=== PATIENT | female | born 1965 | race Caucasian/White ===

== ENCOUNTER 2019-07-15 09:42 | Inpatient (IN) | payer OTHER ==
[2019-07-15] MEDS ORDERED: THROMBIN (BOVINE) 5,000 UNIT VIAL TP ONE ×2 (14:05→17:25)
[2019-07-15] MEDS ORDERED: HEPARIN NA (PORCINE) 5,000 UNITS/ML 1ML VIAL ONE (14:05)
[2019-07-15] MEDS ORDERED: PROPOFOL 20 ML ONE ×9 (14:13→18:08)
[2019-07-15] MEDS ORDERED: fentaNYL CITRATE 250 MCG/5 ML VIAL ONE (14:13)
[2019-07-15] MEDS ORDERED: DEXAMETHASONE SOD PHOSPHATE 4 MG/1 ML VIAL ONE ×2 (14:14)
[2019-07-15] MEDS ORDERED: MIDAZOLAM HCL 2 MG/2 ML SINGLE DOSE VIAL ONE (14:14)
[2019-07-15] MEDS ORDERED: SUCCINYLCHOLINE CHLORIDE 200 MG/10 ML SYRINGE ONE (14:14)
[2019-07-15] MEDS ORDERED: ONDANSETRON 4 MG/2 ML VIAL ONE ×2 (14:14→19:01)
[2019-07-15] MEDS ORDERED: ceFAZolin SODIUM 1 GM VIAL IVPB ONE (16:55)
[2019-07-15] MEDS ORDERED: VANCOMYCIN 1,000 MG VIAL (RESTRICTED TO ID ONLY) ONE (16:57)
[2019-07-15] MEDS ORDERED: VANCOMYCIN 1,000 MG VIAL (RESTRICTED TO ID ONLY) IVPB ONE (17:00)
[2019-07-15] MEDS ORDERED: oxyCODONE HCL 5 MG TABLET PO PRN (19:04)
[2019-07-15] MEDS ORDERED: ONDANSETRON 4 MG/2 ML VIAL IVPUSH PRN ×2 (19:04→19:19)
--- NOTE | 2019-07-15 19:09 | OP ---
Operative Note - Note: Operative Date: 07/15/19 Pre-Operative Diagnosis: C4-C5 stenosis, myelopathy, radiculopathy Operation: C4-C5 ACDF Implants: Cage: 8. Plate: 12mm. Screws: 4 x 4x12mm Post-Operative Diagnosis: Same as Pre-op Surgeon: Al Gatica Mail Inserter: Paco Gatica Anesthesiologist/SECURITIES RESEARCH ANALYST: Norma Martinez Anesthesia: General Specimens Removed: C4-C5 disc Estimated Blood Loss (mls): 50 Fluid Volume Replaced (mls): 1,100 (Crystalloid) Operative Report Dictated: Yes
--- NOTE | 2019-07-15 19:11 | PN ---
Progress Note (short form) - Note Progress Note: 53F s/p C4-C5 ACDF POD #0. -Admit to ICU overnight for airway observation. -Airway observation: In case of emergency, remove anterior cervical spine dressing and pull out running suture; ok to cut suture if needed to decompress hematoma. -Maintain head of bed 30-45 degrees. -Pain medication: per anaesthesia team; oral meds (oxycodone preferred), no NEWSPAPER INSERTER ; NO NSAID's. -No c-collar necessary. -DVT PPx: -Mechanical only: JONO's, SCD's. -Post-op Ancef x 3 doses. -f/u AM labs. -Incentive spirometry. -PT/OT/Rehab, OOB. -PWB B/L UE: 5lbs. -WBAT B/L LE. -d/c Mcfadden catheter at midnight tonight; TOV (8 hours max). -Keep dressing clean & dry. -No heavy lifting (>5 lbs), bending or twisting x 6 months post op. -Start with soft diet; advance diet as tolerated. -B/L UE & LE NV checks. -Care per ICU & medical hospitalist teams. -Discharge planning: discharge home tomorrow; f/u [facility] [place] office 7-10 days; call for appointment; . Al Gatica MD (Orthopaedic Surgery).
[2019-07-15] MEDS ORDERED: LACTATED RINGERS SOLUTION 1,000 ML IV SCH (19:15)
--- NOTE | 2019-07-15 19:21 | PN ---
Teaching Attending Note Name of Resident: Nabor Jolly ATTENDING PHYSICIAN STATEMENT I saw and evaluated the patient. I reviewed the resident's note and discussed the case with the resident. I agree with the resident's findings and plan as documented. SUBJECTIVE: 53-year-old woman status post C4-C5 anterior cervical discectomy and fusion. Postop day #0. OBJECTIVE: Last Vital Signs Temp Pulse Resp BP Pulse Ox 98 F 56 L 15 143/90 99 07/15/19 22:15 07/15/19 22:15 07/15/19 22:15 07/15/19 22:15 07/15/19 22:15 GENERAL: Well developed, well nourished. Awake and alert. No acute distress. HEENT: Normocephalic, atraumatic. PERRLA, EOMI. No conjunctival pallor. Sclera are non- icteric. Moist mucous membranes. NECK: Supple. Full ROM. No JVD. Gauze over anterior neck. CARDIOVASCULAR: Regular rate and rhythm. No murmurs, rubs, or gallops. Distal pulses are 2+ and symmetric. PULMONARY: No evidence of respiratory distress. Lungs clear to auscultation bilaterally. No wheezing, rales or rhonchi. ABDOMINAL: Soft. Non-tender. Non-distended. No rebound or guarding. No organomegaly. Normoactive bowel sounds. MUSCULOSKELETAL Normal range of motion at all joints. No bony deformities or tenderness. No CVA tenderness. EXTREMITIES: No cyanosis. No clubbing. No edema. No calf tenderness. SKIN: Warm and dry. Normal capillary refill. No rashes. No jaundice. PSYCHIATRIC: Cooperative. Good eye contact. Appropriate mood and affect. ASSESSMENT AND PLAN: 53-year-old woman status post C4-C5 anterior cervical discectomy and fusion. Postop day #0. Admit to ICU CBC and chemistry Morphine IV as needed for pain control Zofran IV as needed if nausea or vomiting Gentle IV fluid hydration Incentive spirometry BGM's every 6 hours Orthopedic surgery follow-up Wound care Heparin subcutaneously for DVT prophylaxis
[2019-07-15] MEDS ORDERED: ACETAMINOPHEN 1000 MG/100 ML VIAL (NON FORMULARY) IVPB ONE ×2 (20:10→22:02)
[2019-07-15] MEDS ORDERED: ACETAMINOPHEN INJECTION 100 ML IVPB ONE (20:12)
--- NOTE | 2019-07-15 21:11 | HP ---
CHIEF COMPLAINT: LUE numbness and tingling PCP: HISTORY OF PRESENT ILLNESS: This is a 53 year old female with PMH of anxiety, chronic back pain, COPD, fibromyalgia, GERD, HLD, HTM, stroke She underwent elective C4-C5 ACDF for C4-C5 stenosis, myelopathy, radiculopathy and is POD #0. EBL during procedure was 50ml, 1L crystalloids replaced. Pt reports prior hx of LUE numbness with imbalance and prior repeated falls months prior to surgery. No hx of back trauma. No opiate use prior to surgery. Pt reports improvement post surgery. Recent Travel: Denies PAST MEDICAL HISTORY: HPI PAST SURGICAL HISTORY: cholecystectomy, colonoscopy (6 polyps), hemorrhoid surgery, hysterectomy, pilonidal cyst drainage, L shoulder arthroscopy with rotator cuff repair, , upper GI endoscopy, uterine fibroid surgery, vulva surgery Social History: Smokin.5 pack years, quit 1 year ago Alcohol: Drugs: Allergies No Known Allergies Allergy (Verified 07/12/19 13:01) HOME MEDICATIONS: Home Medications Medication Instructions Recorded Alprazolam [Xanax] 1 mg PO PRN 07/12/19 Cholecalciferol (Vitamin D3) 2,000 unit PO HS 07/12/19 [Vitamin D3] Duloxetine HCl [Cymbalta] 60 mg PO HS 07/12/19 Losartan Potassium [Cozaar -] 25 mg PO HS 07/12/19 Magnesium 200 mg PO HS 07/12/19 Pregabalin [Lyrica] 100 mg PO BID 07/12/19 Simvastatin 20 mg PO HS 07/12/19 REVIEW OF SYSTEMS CONSTITUTIONAL: Absent: fever, chills, diaphoresis, generalized weakness, malaise, loss of appetite, weight change HEENT: Absent: rhinorrhea, nasal congestion, throat pain, throat swelling, difficulty swallowing, mouth swelling, ear pain, eye pain, visual changes CARDIOVASCULAR: Absent: chest pain, syncope, palpitations, irregular heart rate, lightheadedness , peripheral edema RESPIRATORY: Absent: cough, shortness of breath, dyspnea with exertion, orthopnea, wheezing, stridor, hemoptysis GASTROINTESTINAL: Absent: abdominal pain, abdominal distension, nausea, vomiting, diarrhea, constipation, melena, hematochezia GENITOURINARY: Absent: dysuria, frequency, urgency, hesitancy, hematuria, flank pain, genital pain MUSCULOSKELETAL: Absent: myalgia, arthralgia, joint swelling, back pain, neck pain SKIN: Absent: rash, itching, pallor HEMATOLOGIC/IMMUNOLOGIC: Absent: easy bleeding, easy bruising, lymphadenopathy, frequent infections ENDOCRINE: Absent: unexplained weight gain, unexplained weight loss, heat intolerance, cold intolerance NEUROLOGIC: Absent: headache, focal weakness or paresthesias, dizziness, unsteady gait, seizure, mental status changes, bladder or bowel incontinence PSYCHIATRIC: Absent: anxiety, depression, suicidal or homicidal ideation, hallucinations. PHYSICAL EXAMINATION Vital Signs - 24 hr 07/15/19 07/15/19 07/15/19 10:35 10:52 19:14 Temperature 97.8 F 97.2 F L Pulse Rate 63 62 Respiratory 20 12 Rate Blood Pressure 112/73 118/94 O2 Sat by Pulse 97 96 Oximetry (%) 07/15/19 07/15/19 07/15/19 19:30 19:45 20:00 Temperature Pulse Rate 62 67 72 Respiratory 16 14 14 Rate Blood Pressure 130/76 150/90 131/85 O2 Sat by Pulse 95 98 98 Oximetry (%) 07/15/19 20:15 Temperature Pulse Rate 65 Respiratory 16 Rate Blood Pressure 156/88 O2 Sat by Pulse 97 Oximetry (%) GENERAL: Awake, alert, and fully oriented, in no acute distress. HEAD: Normal with no signs of trauma. EYES: Pupils equal, round and reactive to light, extraocular movements intact, sclera anicteric, conjunctiva clear. No lid lag. NECK: anterior surgical dressing clean, dry LUNGS: Breath sounds equal, clear to auscultation bilaterally. No wheezes, and no crackles. No accessory muscle use. HEART: Regular rate and rhythm, normal S1 and S2 without murmur, rub or gallop. ABDOMEN: Soft, nontender, not distended, absent bowel sounds LOWER EXTREMITIES: 2+ pulses, warm, well-perfused. No calf tenderness. No peripheral edema. 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 Good eye contact. Appropriate mood and affect. SKIN: Warm, dry, normal turgor, no rashes or lesions noted, normal capillary refill. Laboratory Results - last 24 hr 07/15/19 09:55 Blood Type O POSITIVE Antibody Screen Negative ASSESSMENT/PLAN: 53F with C4-C5 stenosis, myelopathy, radiculopathy is POD #0 after C4-C5 ACDF. #Cervical stenosis - POD#0 - ICU admission with monitoring for airway obstruction - For airway hematoma: remove anterior cervical spine dressing and pull out running suture to decompress hematoma. - Maintain head of bed 30-45 degrees, no c-collar required - Pain management with Oxycodone, no PROCESS CONTROL SPECIALIST - Post-op Ancef x 3 doses. - Encourage incentive spirometery - Mcfadden D/C at midnight #Hx of HLD - Continue Lipitor 10mg #HTN - Continue Losartan 25mg #FEN - LR @ 125 - CBC/CMP in AM - Start with soft diet; advance diet as tolerated #DVT PE - SCDs #Dispo: -Discharge home tomorrow; f/u [facility] Visit type - Emergency Visit Emergency Visit: Yes ED Registration Date: 07/15/19 Care time: The patient presented to the Emergency Department on the above date and was hospitalized for further evaluation of their emergent condition. - New Patient This patient is new to me today: Yes Date on this admission: 08/05/19 - Critical Care Critical Care patient: No ATTENDING PHYSICIAN STATEMENT I saw and evaluated the patient. I reviewed the resident's note and discussed the case with the resident. I agree with the resident's findings and plan as documented. SUBJECTIVE: OBJECTIVE: ASSESSMENT AND PLAN:
[2019-07-15] MEDS: LACTATED RINGERS SOLUTION 1,000 ML IV SCH (22:30)
[2019-07-15] MEDS ORDERED: ceFAZolin 2 GRAM PREMIX BAG IVPB SCH (23:00)
[2019-07-15] MEDS ORDERED: DULoxetine HCL 30 MG CAPSULE.DR PO ONE (23:07)
[2019-07-15] MEDS: PREGABALIN 100 MG CAPSULE PO SCH (23:14)
[2019-07-15] MEDS: LOSARTAN POTASSIUM 25 MG TABLET PO SCH (23:14)
[2019-07-15] MEDS: DULoxetine HCL 60 MG CAPSULE.DR PO SCH (23:14)
[2019-07-15] MEDS: ATORVASTATIN CA 10 MG TABLET (FP) PO SCH (23:15)
[2019-07-15] MEDS: CEFAZOLIN 2 GM/D5W 2 GM/50 ML ML IVPB SCH (23:15)
[2019-07-16] MEDS: oxyCODONE HCL 5 MG TABLET PO PRN ×4 (01:46→20:39)
--- NOTE | 2019-07-16 03:27 | CONSULT ---
Consultation: REQUESTING PROVIDER: CONSULT REQUEST: We have been asked to medically evaluate this patient for post anterior approach spinal surgery airway monitoring HISTORY OF PRESENT ILLNESS: Pt is a 53 yo F with PMHx of anxiety, chronic back pain, COPD, fibromyalgia, GERD, HLD, HTM, stroke, vitamin D deficiency with hx of C4-C5 stenosis, myelopathy, radiculopathy, now s/p elective C4-C5 anterior cervical discectomy. Pt reports prior hx of LUE numbness with imbalance and prior repeated falls months prior to surgery. No hx of back trauma. No opiate use prior to surgery. Pt reports improvement post surgery. EBL-50ml, with 1.1L crystalloid fluid replacement intraop. PSHX: cholecystectomy, colonoscopy (6 polyps), hemorrhoid surgery, hysterectomy , pilonidal cyst drainage, L shoulder arthroscopy with rotator cuff repair, , upper GI endoscopy, uterine fibroid surgery, vulva surgery Shx: cigs- 7.5 pack years, quit 1 year ago FHx:Mother- CAD, HTN, abnormal dentition Father-CAD, HTN, Stroke REVIEW OF SYSTEMS: HEENT: Present: sore throat, difficulty swallowing Denies other systems review PHYSICAL EXAMINATION Vital Signs - 24 hr 07/15/19 07/15/19 07/15/19 10:35 10:52 19:14 Temperature 97.8 F 97.2 F L Pulse Rate 63 62 Respiratory 20 12 Rate Blood Pressure 112/73 118/94 O2 Sat by Pulse 97 96 Oximetry (%) 07/15/19 07/15/19 07/15/19 19:30 19:45 20:00 Temperature Pulse Rate 62 67 72 Respiratory 16 14 14 Rate Blood Pressure 130/76 150/90 131/85 O2 Sat by Pulse 95 98 98 Oximetry (%) 07/15/19 07/15/19 07/15/19 20:15 20:30 20:45 Temperature Pulse Rate 65 60 62 Respiratory 16 16 14 Rate Blood Pressure 156/88 150/82 152/80 O2 Sat by Pulse 97 99 99 Oximetry (%) 07/15/19 07/15/19 07/15/19 21:00 21:15 21:30 Temperature Pulse Rate 60 66 63 Respiratory 14 16 16 Rate Blood Pressure 154/88 156/86 156/90 O2 Sat by Pulse 98 98 97 Oximetry (%) 07/15/19 07/15/19 07/15/19 21:45 22:00 22:15 Temperature 98.2 F 98 F Pulse Rate 62 60 56 L Respiratory 16 14 15 Rate Blood Pressure 152/88 156/88 143/90 O2 Sat by Pulse 98 99 99 Oximetry (%) 07/16/19 07/16/19 00:00 02:00 Temperature 97.8 F Pulse Rate 54 L 50 L Respiratory 15 15 Rate Blood Pressure 148/94 143/87 O2 Sat by Pulse Oximetry (%) GENERAL: Awake, alert, and fully oriented, in no acute distress. HEAD: Normal with no signs of trauma. EYES: Pupils equal, round and reactive to light, extraocular movements intact, sclera anicteric, conjunctiva clear. EARS, NOSE, THROAT: oropharynx clear without exudates. dry mucous membranes. NECK: anterior surgical dressing clean, dry LUNGS: Breath sounds equal, clear to auscultation bilaterally. No wheezes, and no crackles. HEART: Regular rate and rhythm, normal S1 and S2 without murmur, rub or gallop. ABDOMEN: Absent BS, Soft, nontender, not distended, no guarding MUSCULOSKELETAL: Able to move all extremities, good hand nurse midwife b/l UPPER EXTREMITIES: 2+ pulses, warm, well-perfused. No cyanosis. No clubbing. Cap refill <2 seconds. No peripheral edema.SCDs in place LOWER EXTREMITIES: 2+ pulses, warm, well-perfused. No calf tenderness. No peripheral edema. NEUROLOGICAL: Cranial nerves II-XII intact. Normal speech. Gait not observed Laboratory Results - last 24 hr 07/15/19 09:55 Blood Type O POSITIVE Antibody Screen Negative Active Medications Generic Name Dose Route Start Last Admin Trade Name Freq PRN Reason Stop Dose Admin Alprazolam 1 mg 07/15/19 19:15 Xanax PO PRN BONITA Atorvastatin Calcium 10 mg 07/15/19 22:00 07/15/19 23:15 Lipitor - PO 10 mg HS BONITA Administration Duloxetine HCl 60 mg 07/15/19 22:00 07/15/19 23:14 Cymbalta - PO 60 mg HS BONITA Administration Fentanyl 50 mcg 07/15/19 19:19 07/15/19 19:43 Sublimaze Injection - IVPUSH 50 mcg [id number] PRN Administration PAIN-PACU ORDER X 4 DOSES ONLY Lactated Ringer's 1,000 mls @ 125 mls/hr 07/15/19 19:30 07/15/19 22:30 Lactated Ringers Solution IV 125 mls/hr ASDIR BONITA Administration Cefazolin Sodium/Dextrose 2 gm in 50 mls @ 100 mls/hr 07/15/19 23:00 23:15 Ancef 2 Gm Premixed Ivpb - IVPB 07/16/19 11:29 100 mls/hr Q6H BONITA Administration Losartan Potassium 25 mg 07/15/19 22:00 07/15/19 23:14 Cozaar - PO 25 mg HS BONITA Administration Morphine Sulfate 2 mg 07/16/19 03:26 Morphine Injection - IVPUSH Q6H PRN PAIN LEVEL 6-10 Ondansetron HCl 4 mg 07/15/19 19:04 Zofran Injection IVPUSH Q6H PRN NAUSEA AND/OR VOMITING Oxycodone HCl 5 mg 07/15/19 19:04 Roxicodone - PO Q4H PRN PAIN LEVEL 1-5 Oxycodone HCl 10 mg 07/15/19 19:04 07/16/19 01:46 Roxicodone - PO 10 mg Q4H PRN Administration PAIN LEVEL 6-10 Pregabalin 100 mg 07/15/19 22:00 07/15/19 23:14 Lyrica - PO 100 mg BID BONITA Administration Ambulatory Orders Alprazolam [Xanax] 1 mg PO PRN 07/12/19 Cholecalciferol (Vitamin D3) [Vitamin D3] 2,000 unit PO HS 07/12/19 Duloxetine HCl [Cymbalta] 60 mg PO HS 07/12/19 Losartan Potassium [Cozaar -] 25 mg PO HS 07/12/19 Magnesium 200 mg PO HS 07/12/19 Pregabalin [Lyrica] 100 mg PO BID 07/12/19 Simvastatin 20 mg PO HS 07/12/19 ASSESSMENT/PLAN: 53F s/p C4-C5 ACDF POD #0. Pt is a 53 yo F with PMHx of anxiety, chronic back pain, COPD, fibromyalgia, GERD, HLD, HTN, stroke, vitamin D deficiency with hx of C4-C5 stenosis, myelopathy, radiculopathy, now s/p elective C4-C5 anterior cervical discectomy. Neuro: #hx of C4-C5 stenosis now s/p C4-C5 Anterior Cervical Discectomy and Fusion ( ACDF) POD #0. #fibromyalgia #anxiety, #chronic back pain Pt awake and alert Inadequate pain control with PO meds Will add morphine iv, D/W Dr Cindy akhtarrica, xatrevinx, hinata Admitted to ICU overnight for airway observation. Per Dr Gatica -Airway observation: In case of emergency, remove anterior cervical spine dressing and pull out running suture; ok to cut suture if needed to decompress hematoma. -Maintain head of bed 30-45 degrees. -Pain medication: per anaesthesia team; oral meds (oxycodone preferred), no PERSONNEL CLERKS SUPERVISOR ; NO NSAID's. -No c-collar necessary. -B/L UE & LE NV checks. cardio: #HLD, #HTN, #stroke Cont lipitor 10mg, Cont losartan 25 Pulm: Acute on chronic resp failure on NC Hx of COPD, prior cigarette smoking hx Lungs clear Cont incentive spirometry GI Hx of GERD, not on home PPI/H2 barbara Sore throat, with absent bowel sounds For liquid diet in am, advance as tolerated Renal d/c Mcfadden catheter at midnight tonight; TOV (8 hours max) Hemonc Follow am labs MSK S/p C4-C5 Anterior Cervical Discectomy and Fusion (ACDF) POD #0. PT/OT/Rehab, OOB. -PWB B/L UE: 5lbs. -WBAT B/L LE. -Keep dressing clean & dry. -No heavy lifting (>5 lbs), bending or twisting x 6 months post op. PPX: SCDs FEN LR @ 125/hr Monitor lytes replete as needed To start liquid diet in am, advance as tolerated Dispo: We will continue to follow the patient. Thank you for this consultative opportunity. Visit type - Emergency Visit Emergency Visit: Yes ED Registration Date: 07/15/19 Care time: The patient presented to the Emergency Department on the above date and was hospitalized for further evaluation of their emergent condition. - New Patient This patient is new to me today: Yes Date on this admission: 07/16/19 - Critical Care Critical Care patient: Yes Total Critical Care Time (in minutes): 37 Critical Care Statement: The care of this patient involved high complexity decision making to prevent further life threatening deterioration of the patient 's condition and/or to evaluate & treat vital organ system(s) failure or risk of failure. ATTENDING PHYSICIAN STATEMENT I saw and evaluated the patient. I reviewed the resident's note and discussed the case with the resident. I agree with the resident's findings and plan as documented. SUBJECTIVE: OBJECTIVE: ASSESSMENT AND PLAN:
[2019-07-16] MEDS: MORPHINE SULFATE 2 MG/ML VIAL IVPUSH PRN ×2 (03:40→17:59)
[2019-07-16] MEDS: LACTATED RINGERS SOLUTION 1,000 ML IV SCH (03:40)
[2019-07-16] MEDS: CEFAZOLIN 2 GM/D5W 2 GM/50 ML ML IVPB SCH ×2 (05:35→11:06)
[2019-07-16 06:32] LABS: BASO % 0.2 % (0-2.0); HEMATOCRIT 39.2 % (32.4-45.2); HEMOGLOBIN 13.3 GM/dL (10.7-15.3); LYMPH % 7.6 % (8-40); MCH 31.6 pg (25.7-33.7); MEAN CELL VOLUME 92.8 fl (80-96); MEAN PLT VOLUME 8.8 fl (7.5-11.1); MONO % 2.9 % (3.8-10.2); NEUT % 89.3 % (42.8-82.8); PLATELET COUNT 227 K/MM3 (134-434); RBC 4.22 M/mm3 (3.60-5.2); RDW 13.5 % (11.6-15.6); WHITE BLOOD COUNT 9.7 K/mm3 (4.0-10.0)
[2019-07-16 07:04] LABS: ALBUMIN 3.1 g/dl (3.4-5.0); BILIRUBIN,TOTAL 0.6 mg/dL (0.2-1); BLOOD UREA NITROGEN 14.4 mg/dL (7-18); CALCIUM 8.7 mg/dL (8.5-10.1); POTASSIUM 5.1 mmol/L (3.5-5.1); TOT PROT 6.4 g/dl (6.4-8.2)
[2019-07-16] MEDS ORDERED: ALPRAZolam 1 MG TABLET PO PRN (08:34)
--- NOTE | 2019-07-16 09:15 | OP ---
DATE OF OPERATION: 07/15/2019 SURGEON: Al Gatica M.D. BRAND MARKETING INTERN: Paco Gatica M.D. PREOPERATIVE DIAGNOSIS: C4-5 disk prolapse with sequestration behind the body of C5. All this with cervical spondylogenic myelopathy and radiculopathy. POSTOPERATIVE DIAGNOSIS: C4-5 disk prolapse with sequestration behind the body of C5. All this with cervical spondylogenic myelopathy and radiculopathy. OPERATION: 1. C4-C5 discectomy & anterior arthrodesis (52743). 2. C4, C5 partial corpectomies (99782, 47807). 3. Insertion of biomechanical device C4-C5 (28625). 4. C4-C5 anterior instrumentation (72142). 5. Bone autograft (85690). 6. Bone allograft (98367). 7. Microsurgical Dissection (54656). ANESTHESIA: General. ANTIBIOTICS GIVEN: Two g Kefzol, and 1 g vancomycin, 10 mg Decadron preoperative. OPERATION DETAILS: With the patient in a supine position, a bolster was placed behind the scapulae. The head and neck were extended appropriately. A window drape was applied after cleansing of the skin with Betadine scrub solution, wiped with alcohol, and DuraPrep being applied. Timeout was called. Imaging was available for intraoperative evaluation. An oblique incision of the inner lines of Kings in the cervical spine was made on the right-hand side. Dissection was taken through the platysma and this was split longitudinally. The investing layer of fascia was opened with digital palpation. The plane between the viscera and vessels was easily located. Using a peanut, the plane of the prevertebral fascia was opened, exposing the vertebral bodies and disks. A bent 18-gauge needle was placed into the disk at C4-5. A lateral fluoroscopic x-ray confirmed the position at C4-5. A medial lateral retractor was inserted. Once the longus colli had gently been lifted off the bone for about 2-3 mm both on the left and right-hand side, the teeth of the retractor placed in the longus colli muscle itself, giving easy and adequate exposure. Dexter pins were placed into the vertebral body of C4 and into the vertebral body of C5 for a distraction. A lateral fluoroscopic x-ray confirmed the positioning of these pins and confirming the level of surgical intervention. Using Bovie the annulus was resected off the bone bed. Using a curet, the bulk of the fragmented diseased disk was resected, all sent to the lab for histopathology. Using a Midas Kaiser 40-mm rough octavio bur, the partial corpectomy was performed in order to achieve an even rectangle in the space. Once the rectangle had been achieved, which included the resection of the uncovertebral joints and complete medial and lateral clearance of the disk and vertebral bodies appropriately, the space identified. The posterior longitudinal ligament was readily noted. A number 1 Kerrison was utilized to excise the posterior longitudinal ligament appropriately from cranial to caudal and medial from left to right. There was no disturbance of the theca performed. A size 8 cage was measured. This was with the actual cage, the template device utilized to measure indicating a nice, snug fixation with an 8 cage, and the distraction device once relieved brought about a solid hold of this cage with ligamentotaxis. The cage itself was filled with Osteoform bone morphogenetic material. A size 12 precision cage was inserted, four 12-mm screws. This was a Simplicity plate and Fortilink spacer. Four screws inserted; these were 4 x 12 mm. Solid fixation achieved. Neuromonitoring revealed signals in the nerve root radicals of C5 and C6 and C7 , and on the table once the diskectomy has been informed, a marked improvement in neuromonitoring numbers were noted. The wound was thoroughly inspected for any aberrant bleeding. The wound was dry. A Valsalva was produced and sustained for 40 mmHg for about 20 seconds. No CSF, no bleeding noted. Thorough lavage throughout the procedure. Closure, platysma and the investing layer of fascia 2-0 Vicryl, subcutaneous 2-0 Vicryl, skin 3-0 Monocryl with Steri-Strips. No drains. A collar has been applied. Patient will be nursed in the ICU and hopefully discharged tomorrow. Catheter will be removed. Patient was catheterized preoperative. The catheter will be removed before she is extricated out of the operating room. MD NATHANIEL Alatorre/[id number] MTDD
[2019-07-16] MEDS: PREGABALIN 100 MG CAPSULE PO SCH ×2 (11:07→22:02)
--- NOTE | 2019-07-16 13:26 | PN ---
Teaching Attending Note Name of Resident: Delmi Mera ATTENDING PHYSICIAN STATEMENT I saw and evaluated the patient. I reviewed the resident's note and discussed the case with the resident. I agree with the resident's findings and plan as documented. SUBJECTIVE: Patient seen and examined in the ICU. Awake and alert. No CP or SOB. Pain 4/10. No difficulty with swallowing with breakfast. Intake & Output 07/13/19 07/14/19 07/15/19 07/16/19 23:59 23:59 23:59 23:59 Intake Total 1500 1810 Output Total 950 900 Balance 550 910 Weight 202 lb Last Vital Signs Temp Pulse Resp BP Pulse Ox 97.6 F 67 15 105/72 99 07/16/19 10:00 07/16/19 12:00 07/16/19 12:00 07/16/19 12:00 07/16/19 08:20 Active Medications Alprazolam (Xanax) 1 mg PO DAILY PRN PRN Reason: ANXIETY Atorvastatin Calcium (Lipitor -) 10 mg PO [facility] Last Admin: 07/15/19 23:15 Dose: 10 mg Duloxetine HCl (Cymbalta -) 60 mg PO [facility] Last Admin: 07/15/19 23:14 Dose: 60 mg Fentanyl (Sublimaze Injection -) 50 mcg IVPUSH [id number] PRN PRN Reason: PAIN-PACU ORDER X 4 DOSES ONLY Last Admin: 07/15/19 19:43 Dose: 50 mcg Losartan Potassium (Cozaar -) 25 mg PO [facility] Last Admin: 07/15/19 23:14 Dose: 25 mg Morphine Sulfate (Morphine Sulfate) 2 mg IVPUSH Q6H PRN PRN Reason: PAIN LEVEL 6-10 Last Admin: 07/16/19 03:40 Dose: 2 mg Ondansetron HCl (Zofran Injection) 4 mg IVPUSH Q6H PRN PRN Reason: NAUSEA AND/OR VOMITING Oxycodone HCl (Roxicodone -) 5 mg PO Q4H PRN PRN Reason: PAIN LEVEL 1-5 Oxycodone HCl (Roxicodone -) 10 mg PO Q4H PRN PRN Reason: PAIN LEVEL 6-10 Last Admin: 07/16/19 11:06 Dose: 10 mg Pregabalin (Lyrica -) 100 mg PO BID [facility] Last Admin: 07/16/19 11:07 Dose: 100 mg GENERAL: Awake, alert, and fully oriented, in no acute distress. HEAD: Normal with no signs of trauma. EYES: Pupils equal, round and reactive to light, extraocular movements intact, sclera anicteric, conjunctiva clear. EARS, NOSE, THROAT: oropharynx clear without exudates. dry mucous membranes. NECK: anterior surgical dressing clean, dry LUNGS: Breath sounds equal, clear to auscultation bilaterally. No wheezes, and no crackles. HEART: Regular rate and rhythm, normal S1 and S2 without murmur, rub or gallop. 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 No cyanosis. No clubbing. Cap refill <2 seconds. No peripheral edema.SCDs in place LOWER EXTREMITIES: 2+ pulses, warm, well-perfused. No calf tenderness. No peripheral edema. NEUROLOGICAL: Non-focal Laboratory Results - last 24 hr 07/16/19 07/16/19 07/16/19 05:45 05:45 05:45 WBC 9.7 RBC 4.22 Hgb 13.3 Hct 39.2 MCV 92.8 MCH 31.6 MCHC 34.0 RDW 13.5 Plt Count 227 MPV 8.8 Absolute Neuts (auto) 8.6 H Neutrophils % 89.3 H Lymphocytes % 7.6 L Monocytes % 2.9 L Eosinophils % 0.0 Basophils % 0.2 Nucleated RBC % 0 Sodium 139 Potassium 5.1 Chloride 108 H Carbon Dioxide 28 Anion Gap 3 L BUN 14.4 Creatinine 1.0 Est GFR (CKD-EPI)AfAm 73.97 Est GFR (CKD-EPI)NonAf 63.82 Random Glucose 134 H Calcium 8.7 Total Bilirubin 0.6 AST 246 H ALT 224 H Alkaline Phosphatase 118 H Total Protein 6.4 Albumin 3.1 L Blood Type O POSITIVE ASSESSMENT/PLAN: POD #1: /p C4-C5 Anterior Cervical Discectomy and Fusion (ACDF) Anxiety Chronic back pain COPD Fibromyalgia GERD HLD HTN Stroke Vitamin D deficiency History of C4-C5 stenosis, myelopathy, radiculopathy Pain control Incentive Spirometry O2 as needed PO as tolerated OOB to chair Floor when cleared by ortho Dr Valerio
--- NOTE | 2019-07-16 14:05 | PN ---
Progress Note (short form) - Note Progress Note: Anesthesia Post op Pt seen and examined S:Alert and awake O: Vital Signs Temperature 97.6 F 07/16/19 10:00 Pulse Rate 67 07/16/19 12:00 Respiratory Rate 15 07/16/19 12:00 Blood Pressure 105/72 07/16/19 12:00 O2 Sat by Pulse Oximetry (%) 99 07/16/19 08:20 CBC, BMP 07/16/19 05:45 07/16/19 05:45 A/P: s/p c4-5 ACDF Doing well post op Continue current care Gerardo Juarez MD
--- NOTE | 2019-07-16 18:04 | PN ---
Physical Exam: SUBJECTIVE: Patient seen and examined in the morning. POD #1. No acute events overnight, no events on cardiac monitoring. No complaints of chest pain, shortness of breath, abdominal pain, nausea, vomiting, diarrhea, fevers. OBJECTIVE: Vital Signs Period Temp Pulse Resp BP Sys/Moreno Pulse Ox Last 24 Hr 97.2 F-98.2 F 50-78 11-18 98-156/67-94 95-99 GENERAL: The patient is awake, alert, and fully oriented, in no acute distress. HEAD: Normal with no signs of trauma. EYES: PERRLA, EOMI NECK: Dressing in place in anterior neck. No erythema or drainage in site near dressing. Trachea midline, full range of motion, supple. LUNGS: Breath sounds equal, clear to auscultation bilaterally, no wheezes, no crackles, no accessory muscle use. HEART: Regular rate and rhythm, S1, S2 without murmur, rub or gallop. ABDOMEN: Distended, Soft, nontender,hypoactive bowel sounds. EXTREMITIES: 2+ pulses, warm, well-perfused, no edema. NEUROLOGICAL: Cranial nerves II through XII grossly intact. Normal speech, gait not observed. Gross sensation intact. PSYCH: Normal mood, normal affect. SKIN: Warm, dry, normal turgor, no rashes or lesions noted Laboratory Results - last 24 hr 07/16/19 07/16/19 07/16/19 05:45 05:45 05:45 WBC 9.7 RBC 4.22 Hgb 13.3 Hct 39.2 MCV 92.8 MCH 31.6 MCHC 34.0 RDW 13.5 Plt Count 227 MPV 8.8 Absolute Neuts (auto) 8.6 H Neutrophils % 89.3 H Lymphocytes % 7.6 L Monocytes % 2.9 L Eosinophils % 0.0 Basophils % 0.2 Nucleated RBC % 0 Sodium 139 Potassium 5.1 Chloride 108 H Carbon Dioxide 28 Anion Gap 3 L BUN 14.4 Creatinine 1.0 Est GFR (CKD-EPI)AfAm 73.97 Est GFR (CKD-EPI)NonAf 63.82 Random Glucose 134 H Calcium 8.7 Total Bilirubin 0.6 AST 246 H ALT 224 H Alkaline Phosphatase 118 H Total Protein 6.4 Albumin 3.1 L Blood Type O POSITIVE Active Medications Generic Name Dose Route Start Last Admin Trade Name Freq PRN Reason Stop Dose Admin Alprazolam 1 mg 07/16/19 08:34 Xanax PO DAILY PRN ANXIETY Atorvastatin Calcium 10 mg 07/15/19 22:00 07/15/19 23:15 Lipitor - PO 10 mg HS [facility] Administration Duloxetine HCl 60 mg 07/15/19 22:00 07/15/19 23:14 Cymbalta - PO 60 mg HS [facility] Administration Fentanyl 50 mcg 07/15/19 19:19 07/15/19 19:43 Sublimaze Injection - IVPUSH 50 mcg [id number] PRN Administration PAIN-PACU ORDER X 4 DOSES ONLY Losartan Potassium 25 mg 07/15/19 22:00 07/15/19 23:14 Cozaar - PO 25 mg HS [facility] Administration Morphine Sulfate 2 mg 07/16/19 03:26 07/16/19 03:40 Morphine Sulfate IVPUSH 2 mg Q6H PRN Administration PAIN LEVEL 6-10 Ondansetron HCl 4 mg 07/15/19 19:04 Zofran Injection IVPUSH Q6H PRN NAUSEA AND/OR VOMITING Oxycodone HCl 5 mg 07/15/19 19:04 Roxicodone - PO Q4H PRN PAIN LEVEL 1-5 Oxycodone HCl 10 mg 07/15/19 19:04 07/16/19 11:06 Roxicodone - PO 10 mg Q4H PRN Administration PAIN LEVEL 6-10 Pregabalin 100 mg 07/15/19 22:00 07/16/19 11:07 Lyrica - PO 100 mg BID [facility] Administration ASSESSMENT/PLAN: 53 F PMH anxiety, chronic back pain, COPD, fibromyalgia, GERD, HLD, HTN, stroke , vitamin D deficiency with hx of C4-C5 stenosis, myelopathy, radiculopathy s/p C4-C5 anterior cervical discetomy POD#1. Neuro: Hx of C4-C5 stenosis s/p discectomy and fusion POD #1 -AAOx3 -pain under control -Tolerating regular diet -Making urine, passing flatus -continue lyrica, xanax, cymbalta Cardiovascular: Hx of HLD, HTN, stroke -lipitor 10 mg, losartan 25 mg Pulm -Hx of COPD -incentive spirometry -Continue NC Per Dr. Gatica -Airway observation: In case of emergency, remove anterior cervical spine dressing and pull out running suture; ok to cut suture if needed to decompress hematoma. -Maintain head of bed 30-45 degrees. -Pain medication: per anaesthesia team; oral meds (oxycodone preferred), no GAME MASTER ; NO NSAID's. -No c-collar necessary. -B/L UE & LE NV checks. GI -Restarted on regular diet Renal -Patient making urine, alvarez removed last midnight MSK -PT/OT/Rehab, OOB -Keep dressing clean and dry -No heavy lifting (>5 lbs), bending or twistingx 6 months post op DVT: SCD F:Oral hydration E: Monitor lytes as needed N: Regular diet Lines: None Dispo: Transfer patient to medical/surgical floors. Visit type - Emergency Visit Emergency Visit: Yes ED Registration Date: 07/15/19 Care time: The patient presented to the Emergency Department on the above date and was hospitalized for further evaluation of their emergent condition. - New Patient This patient is new to me today: Yes Date on this admission: 07/16/19 - Critical Care Critical Care patient: Yes Total Critical Care Time (in minutes): 45 Critical Care Statement: The care of this patient involved high complexity decision making to prevent further life threatening deterioration of the patient 's condition and/or to evaluate & treat vital organ system(s) failure or risk of failure. ATTENDING PHYSICIAN STATEMENT I saw and evaluated the patient. I reviewed the resident's note and discussed the case with the resident. I agree with the resident's findings and plan as documented. SUBJECTIVE: OBJECTIVE: ASSESSMENT AND PLAN:
--- NOTE | 2019-07-16 18:42 | PN ---
Progress Note, Physician Chief Complaint: neck pain History of Present Illness: seen and examined at bedside this AM. in good spirits, hungry, feels well - Current Medication List Current Medications: Active Medications Alprazolam (Xanax) 1 mg PO DAILY PRN PRN Reason: ANXIETY Atorvastatin Calcium (Lipitor -) 10 mg PO [facility] Last Admin: 07/15/19 23:15 Dose: 10 mg Duloxetine HCl (Cymbalta -) 60 mg PO [facility] Last Admin: 07/15/19 23:14 Dose: 60 mg Fentanyl (Sublimaze Injection -) 50 mcg IVPUSH [id number] PRN PRN Reason: PAIN-PACU ORDER X 4 DOSES ONLY Last Admin: 07/15/19 19:43 Dose: 50 mcg Losartan Potassium (Cozaar -) 25 mg PO [facility] Last Admin: 07/15/19 23:14 Dose: 25 mg Morphine Sulfate (Morphine Sulfate) 2 mg IVPUSH Q6H PRN PRN Reason: PAIN LEVEL 6-10 Last Admin: 07/16/19 17:59 Dose: 2 mg Ondansetron HCl (Zofran Injection) 4 mg IVPUSH Q6H PRN PRN Reason: NAUSEA AND/OR VOMITING Oxycodone HCl (Roxicodone -) 5 mg PO Q4H PRN PRN Reason: PAIN LEVEL 1-5 Oxycodone HCl (Roxicodone -) 10 mg PO Q4H PRN PRN Reason: PAIN LEVEL 6-10 Last Admin: 07/16/19 11:06 Dose: 10 mg Pregabalin (Lyrica -) 100 mg PO BID [facility] Last Admin: 07/16/19 11:07 Dose: 100 mg - Objective Vital Signs: Vital Signs Temperature 98.2 F 07/16/19 18:00 Pulse Rate 77 07/16/19 18:00 Respiratory Rate 16 07/16/19 18:00 Blood Pressure 100/70 07/16/19 18:00 O2 Sat by Pulse Oximetry (%) 99 07/16/19 08:20 Constitutional: Yes: Well Nourished, No Distress, Calm Neck: Yes: Other (incision site clean dry intact, slightly tender) Cardiovascular: Yes: WNL, Regular Rate and Rhythm Respiratory: Yes: WNL, Regular, CTA Bilaterally Gastrointestinal: Yes: WNL, Normal Bowel Sounds, Soft Musculoskeletal: Yes: WNL Extremities: Yes: WNL Edema: No Neurological: Yes: WNL, Alert, Oriented Labs: CBC, BMP 07/16/19 05:45 07/16/19 05:45 Assessment/Plan ASSESSMENT: POD #1: /p C4-C5 Anterior Cervical Discectomy and Fusion (ACDF) Fibromyalgia/CBP COPD CVA HLD HTN Vit D def GERD PLAN: pain control BP control statin incentive spirometer PT eval ortho recs appreciated
[2019-07-16] MEDS ORDERED: DULoxetine HCL 30 MG CAPSULE.DR PO ONE (21:56)
[2019-07-16] MEDS: ATORVASTATIN CA 10 MG TABLET (FP) PO SCH (22:01)
[2019-07-16] MEDS: LOSARTAN POTASSIUM 25 MG TABLET PO SCH (22:02)
[2019-07-16] MEDS: DULoxetine HCL 60 MG CAPSULE.DR PO SCH (22:02)
[2019-07-17] MEDS: MORPHINE SULFATE 2 MG/ML VIAL IVPUSH PRN ×2 (01:15→10:00)
[2019-07-17] MEDS: oxyCODONE HCL 5 MG TABLET PO PRN ×2 (05:11→11:33)
[2019-07-17 06:22] LABS: BASO % 0.5 % (0-2.0); EOS % 0.5 % (0-4.5); HEMATOCRIT 36.8 % (32.4-45.2); HEMOGLOBIN 12.4 GM/dL (10.7-15.3); LYMPH % 18.4 % (8-40); MCH 31.5 pg (25.7-33.7); MCHC 33.7 g/dl (32.0-36.0); MEAN CELL VOLUME 93.7 fl (80-96); MEAN PLT VOLUME 9.7 fl (7.5-11.1); MONO % 5.1 % (3.8-10.2); NEUT % 75.5 % (42.8-82.8); PLATELET COUNT 198 K/MM3 (134-434); RBC 3.93 M/mm3 (3.60-5.2); RDW 13.4 % (11.6-15.6); WHITE BLOOD COUNT 14.3 K/mm3 (4.0-10.0)
[2019-07-17 06:49] LABS: ALBUMIN 2.9 g/dl (3.4-5.0); BILIRUBIN,TOTAL 0.1 mg/dL (0.2-1); BLOOD UREA NITROGEN 16.2 mg/dL (7-18); CALCIUM 8.3 mg/dL (8.5-10.1); POTASSIUM 4.2 mmol/L (3.5-5.1); TOT PROT 6.3 g/dl (6.4-8.2)
--- NOTE | 2019-07-17 07:12 | PN ---
Physical Exam: SUBJECTIVE: Patient seen and examined Patient complains of sore throat and neck pain, exacerbated by coughing. States that her pain is slightly worse than yesterday morning at 9/10. Has no other complaints. OBJECTIVE: Vital Signs Period Temp Pulse Resp BP Sys/Moreno Pulse Ox Last 24 Hr 97.6 F-99.4 F 56-88 11-22 96-116/63-84 99-99 GENERAL: The patient is awake, alert, and fully oriented, in no acute distress. HEAD: Normal with no signs of trauma. EYES: PERRL, extraocular movements intact, sclera anicteric, conjunctiva clear. No ptosis. ENT: Ears normal, nares patent. NECK: Trachea midline, cervical neck dressing in place. LUNGS: Breath sounds equal, clear to auscultation bilaterally, no wheezes, no crackles, no accessory muscle use. HEART: Regular rate and rhythm, S1, S2 without murmur, rub or gallop. ABDOMEN: Soft, nontender, nondistended, normoactive bowel sounds, no guarding, no rebound. EXTREMITIES: 2+ pulses, warm, well-perfused, no edema. NEUROLOGICAL: Cranial nerves II through XII grossly intact, 5/5 strength. Normal speech, gait not observed. PSYCH: Normal mood, normal affect. SKIN: Warm, dry, normal turgor, no rashes or lesions noted Laboratory Results - last 24 hr 07/16/19 07/16/19 07/17/19 05:45 05:45 05:37 WBC 9.7 14.3 H RBC 4.22 3.93 Hgb 13.3 12.4 Hct 39.2 36.8 MCV 92.8 93.7 MCH 31.6 31.5 MCHC 34.0 33.7 RDW 13.5 13.4 Plt Count 227 MPV 8.8 9.7 D Absolute Neuts (auto) 8.6 H 10.8 H Neutrophils % 89.3 H 75.5 Lymphocytes % 7.6 L 18.4 D Monocytes % 2.9 L 5.1 Eosinophils % 0.0 0.5 D Basophils % 0.2 0.5 Nucleated RBC % 0 0 Sodium Potassium Chloride Carbon Dioxide Anion Gap BUN Creatinine Est GFR (CKD-EPI)AfAm Est GFR (CKD-EPI)NonAf Random Glucose Calcium Total Bilirubin AST ALT Alkaline Phosphatase Total Protein Albumin Blood Type O POSITIVE 07/17/19 05:37 WBC RBC Hgb Hct MCV MCH MCHC RDW Plt Count MPV Absolute Neuts (auto) Neutrophils % Lymphocytes % Monocytes % Eosinophils % Basophils % Nucleated RBC % Sodium 140 Potassium 4.2 Chloride 105 Carbon Dioxide 32 Anion Gap 3 L BUN 16.2 Creatinine 1.0 Est GFR (CKD-EPI)AfAm 73.97 Est GFR (CKD-EPI)NonAf 63.82 Random Glucose 115 H Calcium 8.3 L Total Bilirubin 0.1 L AST 59 H ALT 132 H Alkaline Phosphatase 120 H Total Protein 6.3 L Albumin 2.9 L Blood Type Active Medications Generic Name Dose Route Start Last Admin Trade Name Freq PRN Reason Stop Dose Admin Alprazolam 1 mg 07/16/19 08:34 07/16/19 22:02 Xanax PO 1 mg DAILY PRN Administration ANXIETY Atorvastatin Calcium 10 mg 07/15/19 22:00 07/16/19 22:01 Lipitor - PO 10 mg HS [facility] Administration Duloxetine HCl 60 mg 07/15/19 22:00 07/16/19 22:02 Cymbalta - PO 60 mg HS [facility] Administration Fentanyl 50 mcg 07/15/19 19:19 07/15/19 19:43 Sublimaze Injection - IVPUSH 50 mcg [id number] PRN Administration PAIN-PACU ORDER X 4 DOSES ONLY Losartan Potassium 25 mg 07/15/19 22:00 07/16/19 22:02 Cozaar - PO Not Given HS [facility] Morphine Sulfate 2 mg 07/16/19 03:26 07/17/19 01:15 Morphine Sulfate IVPUSH 2 mg Q6H PRN Administration PAIN LEVEL 6-10 Ondansetron HCl 4 mg 07/15/19 19:04 Zofran Injection IVPUSH Q6H PRN NAUSEA AND/OR VOMITING Oxycodone HCl 5 mg 07/15/19 19:04 Roxicodone - PO Q4H PRN PAIN LEVEL 1-5 Oxycodone HCl 10 mg 07/15/19 19:04 07/17/19 05:11 Roxicodone - PO 10 mg Q4H PRN Administration PAIN LEVEL 6-10 Pregabalin 100 mg 07/15/19 22:00 07/16/19 22:02 Lyrica - PO 100 mg BID [facility] Administration ASSESSMENT/PLAN: 53 F PMH anxiety, chronic back pain, COPD, fibromyalgia, GERD, HLD, HTN, stroke , vitamin D deficiency with hx of C4-C5 stenosis, myelopathy, radiculopathy s/p C4-C5 anterior cervical discetomy, currently POD#2. Neuro: Hx of C4-C5 stenosis s/p discectomy and fusion, currently POD #2 -AAOx3 -pain under control -Tolerating regular diet -Making urine, passing flatus -continue lyrica, xanax, cymbalta Cardiovascular: Hx of HLD, HTN, stroke -lipitor 10 mg, losartan 25 mg Pulm -Hx of COPD -incentive spirometry -Continue NC Per Dr. Gatica -Airway observation: In case of emergency, remove anterior cervical spine dressing and pull out running suture; ok to cut suture if needed to decompress hematoma. -Maintain head of bed 30-45 degrees. -Pain medication: per anaesthesia team; oral meds (oxycodone preferred), no SUPERVISOR PAPER TESTING ; NO NSAID's. -No c-collar necessary. -B/L UE & LE NV checks, currently intact. GI -Restarted on regular diet Heme/Onc: -new leukocytosis to 14.3 on 07/17/2019 -ctm Renal -Patient making urine MSK -PT/OT/Rehab, OOB -Keep dressing clean and dry -No heavy lifting (>5 lbs), bending or twisting x 6 months post op DVT: SCD F:Oral hydration E: Monitor lytes as needed N: Regular diet Lines: None Dispo: Plan for transfer of patient to medical/surgical floors. Visit type - Emergency Visit Emergency Visit: Yes ED Registration Date: 07/15/19 Care time: The patient presented to the Emergency Department on the above date and was hospitalized for further evaluation of their emergent condition. - New Patient This patient is new to me today: No - Critical Care Critical Care patient: Yes Total Critical Care Time (in minutes): 15 ATTENDING PHYSICIAN STATEMENT I saw and evaluated the patient. I reviewed the resident's note and discussed the case with the resident. I agree with the resident's findings and plan as documented. SUBJECTIVE: OBJECTIVE: ASSESSMENT AND PLAN:
[2019-07-17] MEDS ORDERED: BENZOCAINE/MENTH/CETYLPYRD CL 1 EACH LOZENGE MM PRN (08:10)
[2019-07-17] MEDS ORDERED: PT OWN MED DRAWER 7, Y5N ONE ×2 (09:22→11:36)
--- NOTE | 2019-07-17 09:28 | PN ---
Teaching Attending Note Name of Resident: Tracey Rios ATTENDING PHYSICIAN STATEMENT I saw and evaluated the patient. I reviewed the resident's note and discussed the case with the resident. I agree with the resident's findings and plan as documented. SUBJECTIVE: Patient seen and examined in the ICU. Awake and alert. No CP or SOB. Some mild increase in pain 6/10. No difficulty with swallowing with breakfast. Intake & Output 07/14/19 07/15/19 07/16/19 07/17/19 23:59 23:59 23:59 23:59 Intake Total 1500 3340 Output Total 950 1450 Balance 550 1890 Weight 202 lb 202 lb 6.4 oz Last Vital Signs Temp Pulse Resp BP Pulse Ox 98.9 F 61 14 114/77 99 07/17/19 06:00 07/17/19 08:00 07/17/19 08:00 07/17/19 08:00 07/17/19 07:15 Active Medications Alprazolam (Xanax) 1 mg PO DAILY PRN PRN Reason: ANXIETY Last Admin: 07/16/19 22:02 Dose: 1 mg Atorvastatin Calcium (Lipitor -) 10 mg PO [facility] Last Admin: 07/16/19 22:01 Dose: 10 mg Benzocaine/Menthol (Cepacol Lozenge -) 1 each MM PRN PRN PRN Reason: SORE THROAT Duloxetine HCl (Cymbalta -) 60 mg PO [facility] Last Admin: 07/16/19 22:02 Dose: 60 mg Fentanyl (Sublimaze Injection -) 50 mcg IVPUSH [id number] PRN PRN Reason: PAIN-PACU ORDER X 4 DOSES ONLY Last Admin: 07/15/19 19:43 Dose: 50 mcg Losartan Potassium (Cozaar -) 25 mg PO [facility] Last Admin: 07/16/19 22:02 Dose: Not Given Morphine Sulfate (Morphine Sulfate) 2 mg IVPUSH Q6H PRN PRN Reason: PAIN LEVEL 6-10 Last Admin: 07/17/19 01:15 Dose: 2 mg Ondansetron HCl (Zofran Injection) 4 mg IVPUSH Q6H PRN PRN Reason: NAUSEA AND/OR VOMITING Oxycodone HCl (Roxicodone -) 5 mg PO Q4H PRN PRN Reason: PAIN LEVEL 1-5 Oxycodone HCl (Roxicodone -) 10 mg PO Q4H PRN PRN Reason: PAIN LEVEL 6-10 Last Admin: 07/17/19 05:11 Dose: 10 mg Pregabalin (Lyrica -) 100 mg PO BID [facility] Last Admin: 07/16/19 22:02 Dose: 100 mg GENERAL: Awake, alert, and fully oriented, in no acute distress. HEAD: Normal with no signs of trauma. EYES: Pupils equal, round and reactive to light, extraocular movements intact, sclera anicteric, conjunctiva clear. EARS, NOSE, THROAT: oropharynx clear without exudates. dry mucous membranes. NECK: anterior surgical dressing clean, dry LUNGS: Breath sounds equal, clear to auscultation bilaterally. No wheezes, and no crackles. HEART: Regular rate and rhythm, normal S1 and S2 without murmur, rub or gallop. ABDOMEN: Absent BS, Soft, nontender, not distended, no guarding MUSCULOSKELETAL: Able to move all extremities, good hand nurse sane b/l UPPER EXTREMITIES: 2+ pulses, warm, well-perfused. No cyanosis. No clubbing. Cap refill <2 seconds. No peripheral edema.SCDs in place LOWER EXTREMITIES: 2+ pulses, warm, well-perfused. No calf tenderness. No peripheral edema. NEUROLOGICAL: Non-focal Laboratory Results - last 24 hr 07/17/19 07/17/19 05:37 05:37 WBC 14.3 H RBC 3.93 Hgb 12.4 Hct 36.8 MCV 93.7 MCH 31.5 MCHC 33.7 RDW 13.4 MPV 9.7 D Absolute Neuts (auto) 10.8 H Neutrophils % 75.5 Lymphocytes % 18.4 D Monocytes % 5.1 Eosinophils % 0.5 D Basophils % 0.5 Nucleated RBC % 0 Sodium 140 Potassium 4.2 Chloride 105 Carbon Dioxide 32 Anion Gap 3 L BUN 16.2 Creatinine 1.0 Est GFR (CKD-EPI)AfAm 73.97 Est GFR (CKD-EPI)NonAf 63.82 Random Glucose 115 H Calcium 8.3 L Total Bilirubin 0.1 L AST 59 H ALT 132 H Alkaline Phosphatase 120 H Total Protein 6.3 L Albumin 2.9 L ASSESSMENT/PLAN: POD #2: /p C4-C5 Anterior Cervical Discectomy and Fusion (ACDF) Anxiety Chronic back pain COPD Fibromyalgia GERD HLD HTN Stroke Vitamin D deficiency History of C4-C5 stenosis, myelopathy, radiculopathy Pain control Incentive Spirometry O2 as needed PO as tolerated OOB to chair DC planning per Ortho Dr Valerio
[2019-07-17 09:43] LABS: PLATELET ESTIMATE NORMAL
[2019-07-17] MEDS: PREGABALIN 100 MG CAPSULE PO SCH (09:59)
[2019-07-17 10:13] VITALS: TEMP 98.8
[2019-07-17 12:35] VITALS: BMI 34.7
[2019-07-17 12:41] VITALS: BP 103/67; PULSE 65
--- NOTE | 2019-07-17 12:45 | PN ---
Progress Note (short form) - Note Progress Note: POD#2 Doing well. Walked in the hallway. C/O minimal incisional pain Feels improvement in arms. Voice Normal Swallowing regular food O/E Wound bandage dry No swelling voice and swallowing normal Neuro At baseline. Feels she is generally stronger ASSESS Post ACDF Doing well PLAN D/C home Use collar Pain meds See in office next
--- NOTE | 2019-07-17 13:09 | DS ---
Physical Examination Vital Signs: Vital Signs Temperature 98.8 F 07/17/19 10:00 Pulse Rate 65 07/17/19 12:00 Respiratory Rate 17 07/17/19 12:00 Blood Pressure 103/67 07/17/19 12:00 O2 Sat by Pulse Oximetry (%) 99 07/17/19 07:15 Constitutional: Yes: Well Nourished, No Distress, Calm Neck: Yes: Other (anterior dressing cdi) Cardiovascular: Yes: WNL, Regular Rate and Rhythm Respiratory: Yes: WNL, Regular, CTA Bilaterally Gastrointestinal: Yes: WNL, Normal Bowel Sounds, Soft Musculoskeletal: Yes: WNL Extremities: Yes: WNL Edema: No Labs: CBC, BMP 07/17/19 05:37 07/17/19 05:37 Discharge Summary Problems reviewed: Yes Reason For Visit: CERIVCAL DISC DISORDER Hospital Course: This is a 53 year old female with PMH of anxiety, chronic back pain, COPD, fibromyalgia, GERD, HLD, HTM, stroke She underwent elective C4-C5 ACDF for C4-C5 stenosis, myelopathy, radiculopathy POD #2 Patient tolerated procedure well Assessment: s/p C4-C5 Anterior Cervical Discectomy and Fusion (ACDF) Fibromyalgia/CBP COPD CVA HLD HTN Vit D def GERD PLAN: pain control BP controlled statin incentive spirometer PT eval ortho recs appreciated-to follow up in 1 week for dressing removal pain meds per surgery Condition: Improved - Instructions Referrals: Al Gatica MD [Staff Physician] - Disposition: HOME - Home Medications Comprehensive Discharge Medication List: Ambulatory Orders Alprazolam [Xanax] 1 mg PO PRN 07/12/19 Cholecalciferol (Vitamin D3) [Vitamin D3] 2,000 unit PO HS 07/12/19 Duloxetine HCl [Cymbalta] 60 mg PO HS 07/12/19 Losartan Potassium [Cozaar -] 25 mg PO HS 07/12/19 Magnesium 200 mg PO HS 07/12/19 Pregabalin [Lyrica] 100 mg PO BID 07/12/19 Simvastatin 20 mg PO HS 07/12/19
--- NOTE | 2019-07-17 14:38 | PATH ---
Surgical Pathology Report Patient Name: JULIETTE MOREL [facility]. Rec. #: [id number] /Age/Gender: 1965 (Age: 53) / F Account: [id number] Location: 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 Specimen(s) Received C4-C5 Clinical History Cervical disc disorder Final Diagnosis DISC, C4-5, ANTERIOR CERVICAL DISC FUSION: BENIGN INTERVERTEBRAL DISC TISSUE. Electronically Signed Lena Flor M.D. Gross Description Received in formalin labeled "C4-C5 disc," is a 4.5 x 3.0 x 0.4 cm aggregate of adamson fragments of fibrocartilaginous tissue. A route sales representative portion is submitted in one cassette. 07/16/2019 [facility] [place]07/16/2019
== END 2019-07-17 13:43 | disposition home or self-care (01) | DRG 29 ==
LOC: JASUSAT 09:42 → EDSTATUS 12:00 → JSAMEDAYSX 19:04 → JICU 22:45
PROVIDERS: ADMIT Orthopaedic Surgery Orthopaedic Surgery of the Spine; ATTEND Internal Medicine
PROC: 0RB30ZZ Excision of Cervical Vertebral Disc, Open Approach (ICD-10-PCS; 2019-07-15)
PROC: 01N10ZZ Release Cervical Nerve, Open Approach (ICD-10-PCS; 2019-07-15)
PROC: 4A11X4G Monitoring of Peripheral Nervous Electrical Activity, Intraoperative, External Approach (ICD-10-PCS; 2019-07-15)
PROC: 0RG10A0 Fusion of Cervical Vertebral Joint with Interbody Fusion Device, Anterior Approach, Anterior Column, Open Approach (ICD-10-PCS; principal; 2019-07-15 12:00)
DX: M54.12 Radiculopathy, cervical region (principal); M47.12 Other spondylosis with myelopathy, cervical region; F41.9 Anxiety disorder, unspecified; J44.9 Chronic obstructive pulmonary disease, unspecified; M79.7 Fibromyalgia; K21.9 Gastro-esophageal reflux disease without esophagitis; E78.5 Hyperlipidemia, unspecified; Z87.891 Personal history of nicotine dependence; I10 Essential (primary) hypertension; E55.9 Vitamin D deficiency, unspecified; Z86.73 Personal history of transient ischemic attack (TIA), and cerebral infarction without residual deficits
CPT/HCPCS: 36415; 76000-TC-FY; 80053; 85025; 86850; 86900; 86901; 88304-TC; 94760; 97116-GP; 97162-GP; J0131; J1644